=== PATIENT | male | born 1970 | race Hispanic/Latino ===

== ENCOUNTER 2023-08-28 06:16 | Day surgery (SDC) | payer OTHER ==
[2023-08-26 11:41] LABS: BASOPHILS # (AUTO) 0.03 K/uL (0.00-0.20); BASOPHILS % (AUTO) 0.4 % (0.0-5.0); EOSINOPHILS % (AUTO) 2.7 % (0.0-8.0); HEMATOCRIT 43.6 % (42-54); IMMATURE GRANULOCYTE ABSOLUTE 0.06 K/uL (0-1); LYMPHOCYTES % (AUTO) 26.4 % (21.0-51.0); MEAN CORPUSCULAR HGB CONC 34.2 g/dL (32.0-36.0); MEAN CORPUSCULAR VOLUME 87.9 fL (79-99); MONOCYTES # (AUTO) 0.9 K/uL (0.1-1.0); MONOCYTES % (AUTO) 11.3 % (3.0-13.0); NEUTROPHILS # (AUTO) 4.4 K/uL (1.8-7.7); NEUTROPHILS % (AUTO) 58.4 % (40.0-77.0); PLATELET COUNT (AUTO) 227 K/uL (130-400); RED BLOOD CELL COUNT(AUTO) 4.96 MIL/uL (4.50-6.20); RED CELL DISTRIBUTION WIDTH 12.4 % (11.0-15.5); WHITE BLOOD COUNT (AUTO) 7.5 K/uL (4.8-10.8)
[2023-08-26 12:04] LABS: ALBUMIN 3.8 g/dL (3.5-5.0); CREATININE 0.7 mg/dL (0.5-1.5)
[2023-08-26 12:17] VITALS: BP 151/81; PULSE 64; RESP 18
[2023-08-28] VITALS (16 sets, daily range): BP systolic 98–151; BP diastolic 48–99; PULSE 57–73; RESP 12–18
[~2023-08-28] VITALS: Ht 160 cm; Wt 87.2 kg
[~2023-08-28 06:16] MED LIST: GLUC100019 PO; IBUP200C5 PO; LISI10TA24 PO
[2023-08-28] MEDS ORDERED: LACTATED RINGERS 1000ML 1,000 ML IV ONE (06:45)
[2023-08-28] MEDS: CEFAZOLIN SODIUM 2 GM VIAL ONE ×2 (06:47→07:57)
[2023-08-28] MEDS ORDERED: PROPOFOL 10 MG/ML 20ML VIAL IV ONE (07:01)
[2023-08-28] MEDS ORDERED: SUCCINYLCHOLINE CHLORIDE 20 MG/ML 10 ML VIAL ONE (07:01)
[2023-08-28] MEDS ORDERED: ONDANSETRON 4MG INJ ONE (07:01)
[2023-08-28] MEDS ORDERED: LIDOCAINE PF 100MG/5ML (2%) SYRINGE 5ML ONE (07:01)
[2023-08-28] MEDS ORDERED: DEXAMETHASONE SOD PHOSPHATE 10MG/ML 1ML VIAL ONE (07:01)
[2023-08-28] MEDS ORDERED: MIDAZOLAM HCL 1 MG/ML 2ML VIAL ONE (07:02)
[2023-08-28] MEDS ORDERED: NEOSTIGMINE 5MG/5ML SYR IV ONE (07:02)
[2023-08-28] MEDS ORDERED: GLYCOPYRROLATE 1 MG/5 ML SYRINGE ONE (07:02)
[2023-08-28] MEDS ORDERED: FENTANYL CITRATE PF 50 MCG/1 ML 2ML VIAL ONE ×2 (07:02→07:45)
[2023-08-28] MEDS ORDERED: ROCURONIUM 10MG/1ML SYR 10 MG/ML ML ONE (07:03)
[2023-08-28] MEDS ORDERED: BUPIVACAINE/PF 0.25% 30ML VIAL IJ ONE (08:15)
[2023-08-28] MEDS ORDERED: ACET-2079 PO (09:29)
[2023-08-28] MEDS ORDERED: MEPERIDINE-PF 25 MG/ML SYG ONE (09:38)
== END 2023-08-28 10:40 | disposition home or self-care (01) ==
LOC: DAH 06:16
PROVIDERS: ATTEND Student in an Organized Health Care Education/Training Program
DX: M23.322 Other meniscus derangements, posterior horn of medial meniscus, left knee (principal); M23.362 Other meniscus derangements, other lateral meniscus, left knee; M17.12 Unilateral primary osteoarthritis, left knee; M94.262 Chondromalacia, left knee; M23.42 Loose body in knee, left knee; I10 Essential (primary) hypertension; E66.9 Obesity, unspecified; Z79.899 Other long term (current) drug therapy; Z68.31 Body mass index [BMI] 31.0-31.9, adult
CPT/HCPCS: 82040; 80048; 85025; 84134; 86140; 36415; 29880; A4663; A4215 ×2; A4649 ×3; J7120; J3010 ×2; J3490 ×2; J1100; J2710; J0330; J2001; J2250; J2704; J2405; J2175; J0690; A6223; A4930; A5120; A4223; A4222; A4221; A6450